=== PATIENT | male | born 1955 | race American Indian/Alaskan Native ===

== ENCOUNTER 2016-07-25 14:09 | Emergency (ER) | payer MEDICARE ==
[2016-07-25 15:08] LABS: Hematocrit 46.1 % (35.5-45.6); Hemoglobin 15.4 gm/dl (11.8-15.2); Mean Corpuscular HGB Conc 34 % (32-34); Mean Corpuscular Hemoglobin 33 pg (28-32); Mean Corpuscular Volume 99 fl (84-94); Platelet Count 169 K/mm3 (140-440); Red Blood Count 4.65 M/mm3 (3.65-5.03); Red Cell Distribution Width 12.7 % (13.2-15.2); White Blood Count 13.9 K/mm3 (4.5-11.0)
[2016-07-25 15:14] LABS: INR 1.05 (0.87-1.13); Partial Thromboplastin Time 33.4 Sec. (24.2-36.6)
--- NOTE | 2016-07-25 15:19 | Cat Scan Report ---
CT HEAD WITHOUT CONTRAST: HISTORY: Neurological deficit. There is no evidence for hemorrhage, mass or large area of acute ischemia. A chronic focal infarct in the right inferior cerebellum measures 1.7 x 0.9 cm. Chronic focal infarct in the right basal ganglia region measures 1.1 cm. Chronic lacunar infarct in the left ciara measures 5 mm. Ventricular size is within normal limits. The basal cisterns are clear. No extra axial fluid collection. The mastoid air cells and visualized portions of the sinuses are normal. IMPRESSION: No acute intracranial process. Chronic focal infarcts as outlined above.
[2016-07-25 15:24] LABS: Anion Gap 20 mmol/L; BUN/Creatinine Ratio 16.66; Blood Urea Nitrogen 10 mg/dL (9-20); Calcium 9.4 mg/dL (8.4-10.2); Carbon Dioxide 23 mmol/L (22-30); Chloride 98.2 mmol/L (98-107); Glucose 319 mg/dL (75-100); Potassium 4.6 mmol/L (3.6-5.0); Sodium 137 mmol/L (137-145)
[2016-07-25 16:00] LABS: Blastocytes % (Manual) 0 %
[2016-07-25 16:01] LABS: Basophils % (Manual) 0 % (0.0-1.8)
[2016-07-25 16:08] LABS: Diff Status Complete; Platelet Estimate Consistent w Auto; RBC Morphology Normal
[2016-07-25] MEDS ORDERED: DILAUDID IM ONE (20:24)
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
[2016-07-25] MEDS ORDERED: VALIUM IV ONE (21:49)
[2016-07-25] MEDS ORDERED: DILAUDID IV ONE (21:49)
[2016-07-26 00:42] VITALS: BP 147/88
== END 2016-07-25 23:30 | disposition home or self-care (01) ==
LOC: ED 14:09
DX: M62.838 Other muscle spasm (principal); I10 Essential (primary) hypertension; E11.9 Type 2 diabetes mellitus without complications; F17.200 Nicotine dependence, unspecified, uncomplicated; Z85.841 Personal history of malignant neoplasm of brain; Z85.89 Personal history of malignant neoplasm of other organs and systems
CPT/HCPCS: 36415; 70450; 80048; 84484; 85007; 85025; 85610; 85670; 85730; 96372; 96374; 96375; 99284; J1170; J3360